=== PATIENT | female | born 1965 ===

== ENCOUNTER 2021-06-25 11:31 | Day surgery (SDC) | payer BC ==
[~2021-06-25 11:31] MED LIST: SODIUM CHLORIDE 0.9% 1000 ML 1,000 ML IV SCH
--- NOTE | 2021-06-25 12:54 | Anesthesia Day of Surgery ---
Anesthesia Day of Surgery - Day of Surgery Patient Examined: Yes Patient H&P Reviewed: Yes Patient is NPO: Yes
--- NOTE | 2021-06-25 12:55 | Anesthesia Consultation ---
Anesthesia Consult and Med Hx Date of service: 06/25/21 - Airway Anesthetic Teeth Evaluation: Good ROM Head & Neck: Adequate Mental/Hyoid Distance: Adequate Mallampati Class: Class IV Intubation Access Assessment: Probably Good - Pre-Operative Health Status ASA Pre-Surgery Classification: ASA1 Proposed Anesthetic Plan: MAC - Pulmonary Hx Smoking: No - Gastrointestinal Hx Gastroesophageal Reflux Disease: No - Other Systems Hx Obesity: No - Additional Comments Anesthesia Medical History Comments: [place]ian speaking and armature connector line used
[2021-06-25] MEDS ORDERED: LIDOCAINE MPF (2%) 20 MG/1 ML VIAL 5 ML ONE (13:36)
[2021-06-25] MEDS ORDERED: propofoL 200 MG/20 ML VIAL IV ONE ×2 (13:36→13:40)
--- NOTE | 2021-06-25 13:56 | Procedure Note ---
Date of procedure: 06/25/21 Pre-op diagnosis: Colon Polyp Screening Post-op diagnosis: other (No Colon Polyps noted/ Moderate, Left Colon Diverticular Disease (few in the Right Colon)/ Minor,Internal Hemorrhoids) Procedure: Colonoscopy Anesthesia: MAC Surgeon: DONNA REINOSO Estimated blood loss: none Pathology: none Specimen disposition: to lab Disposition: same day (Encourage fiber intake' resume previous medication and F/U in 1 to 3 weeks ([phone]).)
--- NOTE | 2021-06-25 14:12 | Operative Report ---
DATE OF SURGERY: 06/25/2021 PROCEDURE: Colonoscopy. INDICATIONS: This is a 55-year-old female who had a colonoscopy done as part of colon polyp screening. DESCRIPTION OF PROCEDURE: Procedure was done after getting informed consent with MAC anesthesia. Initial rectal examination was unremarkable. The instrument was passed through the rectum onto the cecum, which was identified by the ileocecal valve and the appendiceal orifice. Visualization was fair to good. The terminal ileum was intubated, showed normal mucosa. There were a few scattered diverticula noted in the proximal colon. The scope was withdrawn to the hepatic flexure and reintroduced to the cecum. No additional pathology was noted other than for a few diverticula. The transverse colon showed normal mucosa. There was a moderate diverticular disease noted in the left colon. The rectum showed some minor internal hemorrhoid on the retroverted view. There were no colon polyps noted. There were no biopsies done. There was no bleeding associated with the procedure. ASSESSMENT: Colon polyp screening, no colon polyps noted. Moderate diverticular disease, most pronounced in the left colon. Minor internal hemorrhoid. The patient will be asked to resume home medication. Encouraged to take fiber supplements and follow up in the office in 1-2 weeks' time. Procedure was done in the GI lab with assistance of the GI lab team, which included the GI nurse, the quality systems technician and the assistance of anesthesia. TID: [id number] RECEIPT: [id number] LENA/BOBBY
[2021-06-25 14:38] VITALS: BP 110/80
== END 2021-06-25 15:10 | disposition home or self-care (01) ==
LOC: GIO 11:31
DX: Z12.11 Encounter for screening for malignant neoplasm of colon (principal); K57.30 Diverticulosis of large intestine without perforation or abscess without bleeding; K64.8 Other hemorrhoids; K63.89 Other specified diseases of intestine; Z68.26 Body mass index [BMI] 26.0-26.9, adult
CPT/HCPCS: 45378; J2704; J3490; J7030; J7120; Q0162